=== PATIENT | female | born 1965 ===

== ENCOUNTER 2024-06-24 21:52 | Inpatient (IN) ==
[2024-06-24] MEDS ORDERED: POTASSIUM CHLORIDE 40 MEQ in DEXTROSE 5% IN WATER 500 ML IV PRN (21:56)
[2024-06-24] MEDS ORDERED: MAGNESIUM SULFATE 2 GM/50 ML BAG IV PRN (21:56)
[2024-06-24] MEDS ORDERED: METOCLOPRAMIDE 10 MG/2 ML VIAL IV PRN (21:56)
[2024-06-24] MEDS ORDERED: DEXTROSE 31 GM ORAL.SUSP PO PRN (21:56)
[2024-06-24] MEDS ORDERED: POTASSIUM CHLORIDE 20 MEQ TABLET PO PRN ×2 (21:56)
[2024-06-24] MEDS ORDERED: IPRATROPIUM/ALBUTEROL 3 ML AMPUL.NEB NEB PRN (21:56)
[2024-06-24] MEDS ORDERED: ACETAMINOPHEN 325 MG TABLET PO PRN (21:56)
[2024-06-24] MEDS ORDERED: SENNOSIDES 1 TABLET PO PRN (21:56)
[2024-06-24] MEDS ORDERED: POLYETHYLENE GLYCOL 3350 17 GM PACKET PO PRN (21:56)
[2024-06-24] MEDS ORDERED: DEXTROSE 50% 50 ML VIAL IV PRN (21:56)
[2024-06-24] MEDS ORDERED: METOPROLOL TARTRATE 5 MG/5 ML VIAL IV PRN (21:56)
[2024-06-24] MEDS ORDERED: ONDANSETRON 4 MG/2 ML VIAL IV PRN (21:56)
[2024-06-25] MEDS: 0.9 % SODIUM CHLORIDE 1,000 ML IV ONE (00:54)
[2024-06-25] MEDS: morphine 4 MG/ML VIAL IV PRN (00:58)
[2024-06-25] MEDS: morphine 2 MG/ML VIAL ONE (01:17)
[2024-06-25 06:09] LABS: Basophils # (Auto) 0.06 K/mcL (0.00-0.30); Basophils % (Auto) 0.7 % (0.0-2.0); Eosinophils # (Auto) 0.34 K/mcL (0.00-0.70); Eosinophils % (Auto) 3.9 % (0.0-7.0); Hematocrit 43.8 % (34.1-44.9); Hemoglobin 13.4 g/dL (11.2-15.7); Lymphocytes # (Auto) 1.39 K/mcL (1.50-4.80); Lymphocytes % (Auto) 15.9 % (15.5-49.0); Mean Cell Volume 99.1 fL (80.0-100.0); Mean Corpuscular HGB Conc 30.6 g/dL (31.0-36.0); Mean Platelet Volume 9.8 fL (8.8-12.5); Monocytes # (Auto) 0.62 K/mcL (0.10-0.90); Monocytes % (Auto) 7.1 % (1.0-12.0); Neutrophils % (Auto) 72.2 % (38.0-78.0); Platelet Count 234 K/mcL (140-440); RBC 4.42 M/mcL (3.59-5.38); Red Cell Distribution Width 15.5 % (11.5-14.5); WBC 8.8 K/mcL (4.5-11.0)
[2024-06-25 06:24] LABS: ALT/SGPT 14 U/L (<40); AST/SGOT 24 U/L (<32); Albumin 3.5 gm/dL (3.2-5.2); Albumin/Globulin Ratio 1.2 (1.0-2.3); Alkaline Phosphatase 114 U/L (39-117); Bilirubin,Direct 0.3 mg/dL (<0.3); Bilirubin,Total 0.7 mg/dL (0.1-1.0); Blood Urea Nitrogen 10 mg/dL (6-20); Calcium 9.6 mg/dL (8.6-10.4); Carbon Dioxide 27 mmol/L (22-30); Chloride 105 mmol/L (96-108); Glomerular Filtration Rate 98; Glucose 104 mg/dL (70-105); Lactate Dehydrogenase 224 U/L (135-225); Phosphorous 2.8 mg/dL (2.5-4.5); Potassium 4.3 mmol/L (3.3-5.1); Sodium 139 mmol/L (133-145); Triglycerides 86 mg/dL (<150); Uric Acid 4.1 mg/dL (2.5-8.0)
[2024-06-25] MEDS: INSULIN LISPRO 1 UNIT/0.01 ML UNIT SQ SCH (07:22)
[2024-06-25] MEDS: morphine 4 MG/ML VIAL ONE (07:23)
[2024-06-25] MEDS: DOCUSATE SODIUM 100 MG CAPSULE PO SCH (07:59)
[2024-06-25] MEDS: SOTALOL 80 MG TABLET PO SCH (08:20)
[2024-06-25] MEDS: morphine 30 MG TAB.SR.12H PO SCH (08:20)
[2024-06-25] MEDS: OMEPRAZOLE 20 MG CAPSULE PO SCH (08:20)
[2024-06-25] MEDS: LIOTHYRONINE 5 MCG TABLET PO SCH (08:20)
[2024-06-25] MEDS: FUROSEMIDE 20 MG/2 ML VIAL IV SCH (08:41)
[2024-06-25] MEDS ORDERED: PROPOFOL 200 MG/20 ML VIAL IV ONE (11:09)
[2024-06-25] MEDS ORDERED: HYDROmorphone 0.5 MG/0.5 ML SYRINGE ONE (11:09)
[2024-06-25] MEDS ORDERED: fentaNYL 100 MCG/2 ML VIAL ONE (11:09)
[2024-06-25] MEDS ORDERED: SUGAMMADEX SODIUM 200 MG/2 ML VIAL IV ONE (11:10)
[2024-06-25] MEDS ORDERED: GLYCOPYRROLATE 0.2 MG/ML VIAL IV ONE (11:12)
[2024-06-25] MEDS ORDERED: ONDANSETRON 4 MG/2 ML VIAL ONE (11:12)
[2024-06-25] MEDS ORDERED: DEXAMETHASONE 10 MG/ML VIAL ONE (11:12)
[2024-06-25] MEDS ORDERED: ROCURONIUM 10 MG/ML ML IV ONE (11:12)
[2024-06-25] MEDS ORDERED: PHENYLephrine 1 MG/10 ML SYRINGE (ANEST) ONE (12:10)
[2024-06-25] MEDS ORDERED: ePHEDrine 50 MG/5 ML SYRINGE (ANEST) IV ONE (12:17)
[2024-06-25] MEDS ORDERED: TRANEXAMIC ACID 1,000 MG/10 ML VIAL ONE (12:17)
[2024-06-25] MEDS ORDERED: ceFAZolin 1 GM VIAL ONE (12:18)
[2024-06-25] MEDS ORDERED: FAMOTIDINE/PF 20 MG/2 ML VIAL IV ONE (12:29)
[2024-06-25] MEDS ORDERED: MAGNESIUM SULFATE 2 GM/50 ML BAG IV ONE ×2 (12:40→14:33)
[2024-06-25] MEDS ORDERED: KETAMINE 50 MG/ML Syringe IV ONE ×2 (12:40→14:33)
[2024-06-25] MEDS ORDERED: ONDANSETRON 4 MG/2 ML VIAL IV PRN (12:54)
[2024-06-25] MEDS ORDERED: BENZOCAINE/MENTHOL 1 LOZENGE PO PRN (12:54)
[2024-06-25] MEDS ORDERED: IPRATROPIUM/ALBUTEROL 3 ML AMPUL.NEB NEB PRN (12:54)
[2024-06-25] MEDS ORDERED: VASOPRESSIN 20 UNIT/ML VIAL ONE (13:18)
[2024-06-25] MEDS: ACETAMINOPHEN 1,000 MG/100 ML BAG IV ONE (14:11)
[2024-06-25] MEDS: METHOCARBAMOL 1,000 MG/10 ML VIAL IV PRN (14:24)
[2024-06-25] MEDS: fentaNYL 100 MCG/2 ML VIAL IV PRN (14:29)
[2024-06-25] MEDS ORDERED: LIDOCAINE 2% PF 5 ML VIAL ONE (14:33)
[2024-06-25] MEDS: METOCLOPRAMIDE 10 MG TABLET PO SCH (15:31)
[2024-06-25] MEDS: LORazepam 0.5 MG TABLET PO SCH (15:31)
[2024-06-25] MEDS: ceFAZolin 2 GM in DEXTROSE 5% IN WATER 50 ML IV SCH (15:31)
[2024-06-25] MEDS: LACTATED RINGERS 1,000 ML IV SCH (15:31)
[2024-06-25] MEDS: ceFAZolin 1 GM VIAL IV SCH (17:04)
[2024-06-25] MEDS: AMITRIPTYLINE 25 MG TABLET PO SCH (20:17)
[2024-06-25] MEDS: ZOLPIDEM 5 MG TABLET PO PRN (20:18)
[2024-06-25] MEDS: DICYCLOMINE 20 MG TABLET PO SCH (20:18)
[2024-06-25] MEDS: SIMVASTATIN 20 MG TABLET PO SCH (20:18)
[2024-06-25] MEDS: GABAPENTIN 300 MG CAPSULE PO SCH (20:19)
[2024-06-26] MEDS: HYDROcodone/APAP 5/325MG TABLET PO PRN (05:26)
[2024-06-26 06:45] LABS: Basophils # (Auto) 0.02 K/mcL (0.00-0.30); Basophils % (Auto) 0.2 % (0.0-2.0); Eosinophils # (Auto) 0 K/mcL (0.00-0.70); Eosinophils % (Auto) 0 % (0.0-7.0); Hematocrit 42.7 % (34.1-44.9); Hemoglobin 13.5 g/dL (11.2-15.7); Lymphocytes # (Auto) 0.66 K/mcL (1.50-4.80); Lymphocytes % (Auto) 5.3 % (15.5-49.0); Mean Cell Volume 97.3 fL (80.0-100.0); Mean Corpuscular HGB Conc 31.6 g/dL (31.0-36.0); Monocytes # (Auto) 0.72 K/mcL (0.10-0.90); Monocytes % (Auto) 5.8 % (1.0-12.0); Neutrophils % (Auto) 88.5 % (38.0-78.0); Platelet Count 253 K/mcL (140-440); RBC 4.39 M/mcL (3.59-5.38); Red Cell Distribution Width 15.2 % (11.5-14.5); WBC 12.4 K/mcL (4.5-11.0)
[2024-06-26 06:51] LABS: ALT/SGPT 40 U/L (<40); AST/SGOT 49 U/L (<32); Albumin 3.6 gm/dL (3.2-5.2); Albumin/Globulin Ratio 1.1 (1.0-2.3); Alkaline Phosphatase 146 U/L (39-117); Bilirubin,Direct 0.3 mg/dL (<0.3); Bilirubin,Total 0.6 mg/dL (0.1-1.0); Blood Urea Nitrogen 12 mg/dL (6-20); Calcium 9.2 mg/dL (8.6-10.4); Carbon Dioxide 25 mmol/L (22-30); Chloride 102 mmol/L (96-108); Globulin 3.2 gm/dL (2.2-3.7); Glomerular Filtration Rate 98; Glucose 203 mg/dL (70-105); Lactate Dehydrogenase 302 U/L (135-225); Phosphorous 2.4 mg/dL (2.5-4.5); Potassium 4.3 mmol/L (3.3-5.1); Sodium 136 mmol/L (133-145); Triglycerides 89 mg/dL (<150)
[2024-06-26] MEDS: GLIMEPIRIDE 2 MG TABLET PO SCH (07:36)
[2024-06-26] MEDS: SERTRALINE 100 MG TABLET PO SCH (08:04)
[2024-06-26] MEDS: FOLIC ACID 1 MG TABLET PO SCH (08:05)
[2024-06-26] MEDS: HYDROcodone/APAP 10/325MG TABLET PO PRN (14:06)
[2024-06-26] MEDS: [UNRECOGNIZED DRUG - OTHER] SUB-Q SCH (14:07)
[2024-06-26] MEDS: SEMAGLUTIDE SUB-Q SCH (14:07)
[2024-06-26] MEDS: morphine 4 MG/ML VIAL IV PRN (20:16)
[2024-06-27 09:26] LABS: Basophils # (Auto) 0.06 K/mcL (0.00-0.30); Basophils % (Auto) 0.6 % (0.0-2.0); Eosinophils # (Auto) 0.42 K/mcL (0.00-0.70); Hematocrit 43.8 % (34.1-44.9); Hemoglobin 13.7 g/dL (11.2-15.7); Lymphocytes # (Auto) 1.98 K/mcL (1.50-4.80); Mean Cell Volume 97.8 fL (80.0-100.0); Mean Corpuscular HGB Conc 31.3 g/dL (31.0-36.0); Mean Platelet Volume 9.8 fL (8.8-12.5); Monocytes # (Auto) 0.85 K/mcL (0.10-0.90); Monocytes % (Auto) 8.2 % (1.0-12.0); Neutrophils % (Auto) 67.9 % (38.0-78.0); Platelet Count 238 K/mcL (140-440); RBC 4.48 M/mcL (3.59-5.38); Red Cell Distribution Width 15.6 % (11.5-14.5); WBC 10.4 K/mcL (4.5-11.0)
[2024-06-27 09:49] LABS: ALT/SGPT 22 U/L (<40); AST/SGOT 30 U/L (<32); Albumin 3.5 gm/dL (3.2-5.2); Albumin/Globulin Ratio 1.1 (1.0-2.3); Alkaline Phosphatase 130 U/L (39-117); Bilirubin,Direct 0.3 mg/dL (<0.3); Bilirubin,Total 0.6 mg/dL (0.1-1.0); Blood Urea Nitrogen 15 mg/dL (6-20); Calcium 9.1 mg/dL (8.6-10.4); Carbon Dioxide 25 mmol/L (22-30); Chloride 103 mmol/L (96-108); Globulin 3.1 gm/dL (2.2-3.7); Glomerular Filtration Rate 98; Glucose 206 mg/dL (70-105); Lactate Dehydrogenase 313 U/L (135-225); Phosphorous 2.5 mg/dL (2.5-4.5); Potassium 4.3 mmol/L (3.3-5.1); Sodium 137 mmol/L (133-145); Triglycerides 107 mg/dL (<150); Uric Acid 3.6 mg/dL (2.5-8.0)
[2024-06-27] MEDS: morphine 4 MG/ML VIAL IV ONE (12:36)
[2024-06-27] MEDS: ACETAMINOPHEN 650 MG/65 ML BAG IV ONE (12:38)
[2024-06-27] MEDS: HYDROcodone/APAP 10/325MG TABLET PO SCH (14:10)
[2024-06-28 07:16] LABS: Basophils # (Auto) 0.05 K/mcL (0.00-0.30); Basophils % (Auto) 0.6 % (0.0-2.0); Eosinophils # (Auto) 0.54 K/mcL (0.00-0.70); Eosinophils % (Auto) 6.8 % (0.0-7.0); Hematocrit 41.7 % (34.1-44.9); Hemoglobin 12.8 g/dL (11.2-15.7); Lymphocytes # (Auto) 1.71 K/mcL (1.50-4.80); Lymphocytes % (Auto) 21.7 % (15.5-49.0); Mean Cell Volume 98.6 fL (80.0-100.0); Mean Corpuscular HGB Conc 30.7 g/dL (31.0-36.0); Mean Platelet Volume 9.8 fL (8.8-12.5); Monocytes # (Auto) 0.91 K/mcL (0.10-0.90); Monocytes % (Auto) 11.5 % (1.0-12.0); Neutrophils % (Auto) 59.3 % (38.0-78.0); Platelet Count 233 K/mcL (140-440); RBC 4.23 M/mcL (3.59-5.38); Red Cell Distribution Width 15.7 % (11.5-14.5); WBC 7.9 K/mcL (4.5-11.0)
[2024-06-28 07:36] LABS: ALT/SGPT 19 U/L (<40); AST/SGOT 26 U/L (<32); Albumin 3.3 gm/dL (3.2-5.2); Albumin/Globulin Ratio 1.2 (1.0-2.3); Alkaline Phosphatase 117 U/L (39-117); Bilirubin,Direct 0.3 mg/dL (<0.3); Bilirubin,Total 0.6 mg/dL (0.1-1.0); Blood Urea Nitrogen 14 mg/dL (6-20); Carbon Dioxide 26 mmol/L (22-30); Chloride 104 mmol/L (96-108); Globulin 2.8 gm/dL (2.2-3.7); Glomerular Filtration Rate 105; Glucose 117 mg/dL (70-105); Lactate Dehydrogenase 198 U/L (135-225); Phosphorous 3.1 mg/dL (2.5-4.5); Potassium 3.9 mmol/L (3.3-5.1); Sodium 138 mmol/L (133-145); Triglycerides 96 mg/dL (<150)
[2024-06-28] MEDS: HYDROcodone/APAP 10/325MG TABLET PO PRN (15:49)
[2024-06-28] MEDS: APIXABAN 5 MG TABLET PO SCH (20:15)
[2024-06-29 06:55] LABS: Basophils # (Auto) 0.05 K/mcL (0.00-0.30); Basophils % (Auto) 0.6 % (0.0-2.0); Eosinophils # (Auto) 0.41 K/mcL (0.00-0.70); Eosinophils % (Auto) 5.2 % (0.0-7.0); Lymphocytes # (Auto) 1.68 K/mcL (1.50-4.80); Lymphocytes % (Auto) 21.3 % (15.5-49.0); Mean Cell Volume 98.4 fL (80.0-100.0); Mean Platelet Volume 9.6 fL (8.8-12.5); Monocytes % (Auto) 8.9 % (1.0-12.0); Neutrophils % (Auto) 63.7 % (38.0-78.0); Platelet Count 254 K/mcL (140-440); RBC 4.27 M/mcL (3.59-5.38); Red Cell Distribution Width 15.8 % (11.5-14.5); WBC 7.9 K/mcL (4.5-11.0)
[2024-06-29 07:11] LABS: Blood Urea Nitrogen 16 mg/dL (6-20); Calcium 9.2 mg/dL (8.6-10.4); Carbon Dioxide 27 mmol/L (22-30); Chloride 102 mmol/L (96-108); Glomerular Filtration Rate 98; Glucose 119 mg/dL (70-105); Sodium 138 mmol/L (133-145)
[2024-07-01 06:52] LABS: Basophils # (Auto) 0.09 K/mcL (0.00-0.30); Basophils % (Auto) 0.9 % (0.0-2.0); Eosinophils # (Auto) 0.33 K/mcL (0.00-0.70); Eosinophils % (Auto) 3.4 % (0.0-7.0); Hematocrit 45.1 % (34.1-44.9); Hemoglobin 14.2 g/dL (11.2-15.7); Lymphocytes # (Auto) 1.03 K/mcL (1.50-4.80); Lymphocytes % (Auto) 10.7 % (15.5-49.0); Mean Cell Volume 96.4 fL (80.0-100.0); Mean Corpuscular HGB Conc 31.5 g/dL (31.0-36.0); Monocytes # (Auto) 0.92 K/mcL (0.10-0.90); Monocytes % (Auto) 9.6 % (1.0-12.0); Neutrophils % (Auto) 75.2 % (38.0-78.0); Platelet Count 274 K/mcL (140-440); RBC 4.68 M/mcL (3.59-5.38); Red Cell Distribution Width 15.5 % (11.5-14.5); WBC 9.6 K/mcL (4.5-11.0)
[2024-07-02] MEDS: HYDROcodone/APAP 10/325MG TABLET PO PRN (12:02)
== END 2024-07-03 14:28 | DRG 481 ==
LOC: MEDSUR 06-25 00:19
PROVIDERS: ADMIT Internal Medicine; ATTEND Internal Medicine